=== PATIENT | male | born 1995 | race Caucasian/White ===

== ENCOUNTER 2023-01-03 01:58 | Emergency (ER) | payer MEDICAID ==
[~2023-01-03] VITALS: Ht 167.6 cm; Wt 64.0 kg
[2023-01-03 02:04] VITALS: BP 138/76
[2023-01-03] MEDS ORDERED: ACETAMINOPHEN 325MG TABLET PO ONE (06:00)
[2023-01-03] MEDS ORDERED: IBUP-2028 MT (07:45)
== END 2023-01-03 08:18 | disposition home or self-care (01) ==
LOC: ER 01:58
DX: S02.5XXA Fracture of tooth (traumatic), initial encounter for closed fracture (principal); W18.39XA Other fall on same level, initial encounter; Y93.89 Activity, other specified; Y92.89 Other specified places as the place of occurrence of the external cause; Y99.8 Other external cause status
CPT/HCPCS: 70486; 99284

== ENCOUNTER 2025-06-14 15:40 | Emergency (ER) | payer MEDICAID ==
[~2025-06-14] VITALS: Ht 165.1 cm; Wt 73.0 kg
[~2025-06-14 15:40] MED LIST: IBUP-2028 MT
[2025-06-14 15:42] VITALS: O2SAT 99
[2025-06-14 15:45] VITALS: BP 133/79; PULSE 69; RESP 18; TEMP 36.9; O2SAT 99
== END 2025-06-14 16:53 | disposition home or self-care (01) ==
LOC: ER 15:40
DX: R51.9 Headache, unspecified (principal)
CPT/HCPCS: 99281; 99282